=== PATIENT | female | born 1965 | race Caucasian/White ===

== ENCOUNTER 2016-12-22 18:22 | Emergency (ER) | payer BC ==
[2016-12-22 18:47] VITALS: BP 135/69
--- NOTE | 2016-12-22 19:37 | EDM.PDOC ---
ED HPI GENERAL MEDICAL PROBLEM - General Chief Complaint: Eye Problems Stated Complaint: SOMETHING IN RIGHT EYE Time Seen by Provider: 12/22/16 18:45 Source of Information: Reports: Patient History Limitations: Reports: No Limitations - History of Present Illness INITIAL COMMENTS - FREE TEXT/NARRATIVE: Patient is a 51-year-old female who presents to the ED complaining of something in her right eye. Patient was mowing earlier today when this occurred. States her right eye has been excessively watery. She has no vision changes. Minimal pain present. Patient does wear glasses. 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 (see below) Other Treatments MARINE SERVICE OPERATOR: eye drops Right Eye Pain Score (Numeric/FACES): 4 - Related Data Allergies Allergy/AdvReac Type Severity Reaction Status Date / Time procaine [From Novocain] Allergy Swelling Verified 12/22/16 18:36 shellfish derived Allergy Rash Verified 12/20/15 13:24 Home Meds: Home Meds Hydrochlorothiazide [Hydrochlorothiazide] 12.5 mg PO DAILY 12/22/16 [History] Social & Family History - Tobacco Use Smoking Status *Q: Never Smoker Second Hand Smoke Exposure: No - Caffeine Use Caffeine Use: Reports: Soda - Recreational Drug Use Recreational Drug Use: No ED ROS GENERAL - Review of Systems Review Of Systems: See Below HEENT: Reports: Eye Pain (Right). Denies: Vision Change ED EXAM GENERAL W FULL EYE - Physical Exam Exam: See Below Exam Limited By: No Limitations General Appearance: Alert, WD/WN, No Apparent Distress Eye Exam: Right Eye: Corneal Abrasion, EOMI, PERRL Visual Acuity (R) 20/: 40 Visual Acuity (L) 20/: 20 With Correction: Yes Eyelids: Right: Normal Appearance, Infraorbital Anesthesia, Lid Everted for Exam Conjunctiva & Sclera: Right: Injected Cornea Exam: Right: Corneal Abrasion, Examined with Flourescein Extraocular Movements: Right: Intact Pupillary Size: Bilateral: 4 mm Pupillary Reaction: Bilateral: Brisk Anterior Chamber: Bilateral: Normal Appearance Ears: Hearing Grossly Normal Nose: Normal Inspection Throat/Mouth: Normal Voice, No Airway Compromise Neck: Normal Inspection, Supple Respiratory/Chest: No Respiratory Distress, No Accessory Muscle Use Cardiovascular: Normal Peripheral Pulses Neurological: Alert, Oriented, CN II-XII Intact, Normal Cognition Psychiatric: Normal Affect, Normal Mood Skin Exam: Warm, Dry, Intact, Normal Color Course - Vital Signs Last Recorded V/S: Last Vital Signs Temp 98.3 F 12/22/16 18:38 Pulse 72 12/22/16 18:38 Resp 18 12/22/16 18:38 BP 135/69 12/22/16 18:38 Pulse Ox 97 12/22/16 18:38 - Orders/Labs/Meds Meds: Medications Discontinued Medications Generic Name Dose Route Start Last Admin Trade Name Dennis GUTIERREZ Reason Stop Dose Admin Erythromycin 1 gm 12/22/16 21:02 12/22/16 21:19 Erythromycin 0.5% Ophth Oint EYERT 12/22/16 21:03 1 cm ONETIME ONE Administration Fluorescein Sodium/Benoxinate HCl 1 ml 12/22/16 20:23 12/22/16 20:58 Fluress Ophth Soln EYERT 12/22/16 20:24 1 ml ONETIME ONE Administration Ketorolac Tromethamine 60 mg 12/22/16 20:58 12/22/16 21:03 Toradol IM 12/22/16 20:59 60 mg ONETIME ONE Administration Proparacaine HCl 1 ml 12/22/16 20:23 12/22/16 20:58 Proparacaine 0.5% Ophth Soln EYERT 12/22/16 20:24 1 ml ONETIME ONE Administration - Re-Assessments/Exams Free Text/Narrative Re-Assessment/Exam: Patient has a allergy to procaine and thus with ordering proparacaine and fluress it pops up as a allergy. I did contact pharmacy at 1850 to see if this is of any concern. 1932 Pharmacy called back and recommends contacting turntable worker to discuss this with since all literature recommends not utilizing any of the two. 1935 [facility] contacted. They will call back when Opthalmologist observation assistant calls back. [id number] Batista and she does not see any issues with utilizing the proparacaine and fluress. States it is a common issue to which should be of no concern. 12/22/16 20:59 Under slit light examination with proparacaine and fluress patient did have a corneal abrasion to the 3:00 aspect of the right cornea. No foreign objects noted. No additional abrasions. Will order erythromycin ribbon be applied to the affected eye. Patient has a headache is requesting something for the discomfort. Ordered Toradol 60 mg IM. Discharged home with instructions as documented. Departure - Departure Time of Disposition: 21:03 Disposition: Home, Self-Care 01 Condition: Good Clinical Impression: Corneal abrasion, right Qualifiers: Encounter type: initial encounter Qualified Code(s): S05.01XA - Injury of conjunctiva and corneal abrasion without foreign body, right eye, initial encounter - Discharge Information Instructions: Corneal Abrasion, [id number] Referrals: PCP,None [Primary Care Provider] - Forms: ED Department Discharge Additional Instructions: Apply 1 cm of erythromycin ointment to the right eye 4 times a day. See your bread racker this coming Sunday for reevaluation. Take ibuprofen and Tylenol in alternating fashion for pain. Return to the ED for any new or worsening symptoms.
[2016-12-22] MEDS ORDERED: Benoxinate/Fluorescein 0.4-0.25% Ophth Soln 5 ML Bottle EYERT ONE (20:23)
[2016-12-22] MEDS ORDERED: Proparacaine 0.5% Ophth Soln 15 ML Bottle EYERT ONE (20:23)
[2016-12-22] MEDS ORDERED: Ketorolac 60 MG/2 ML SDV IM ONE (20:58)
[2016-12-22] MEDS ORDERED: Erythromycin Base 0.5% Ophth Oint 1 GM Tube EYERT ONE (21:02)
== END 2016-12-22 21:22 | disposition home or self-care (01) ==
LOC: JD.ED 18:22
DX: S05.01XA Injury of conjunctiva and corneal abrasion without foreign body, right eye, initial encounter (principal); Z88.8 Allergy status to other drugs, medicaments and biological substances; Z91.013 Allergy to seafood; Z79.899 Other long term (current) drug therapy; X58.XXXA Exposure to other specified factors, initial encounter
CPT/HCPCS: 96372; 99283; A9270; J1885

== ENCOUNTER 2020-09-24 19:39 | Emergency (ER) | payer BC ==
[2020-09-24] MEDS ORDERED: Pantoprazole 40 MG in Sodium Chloride 0.9% 100 ML IV ONE (20:18)
[2020-09-24] MEDS ORDERED: Ondansetron 4 MG/2 ML SDV IVPUSH ONE (20:18)
[2020-09-24] MEDS ORDERED: HYDROmorphone 0.5 MG/0.5 ML Syringe IVPUSH ONE ×2 (20:19→21:49)
[2020-09-24] MEDS ORDERED: Pantoprazole 40 MG Vial IVPUSH ONE (20:24)
--- NOTE | 2020-09-24 20:25 | EDM.PDOC ---
ED HPI GENERAL MEDICAL PROBLEM - General Chief Complaint: Abdominal Pain Stated Complaint: ABDOMINAL PAIN NAUSEA Time Seen by Provider: 09/24/20 20:08 Source of Information: Reports: Patient History Limitations: Reports: No Limitations - History of Present Illness INITIAL COMMENTS - FREE TEXT/NARRATIVE: This is a 55-year-old female. Onset yesterday evening with right upper quadrant pain radiating to the right back area. She says the last time this happened she was diagnosed with celiac disease. She has been faithful with her diet and has not strayed from it recently to cause this pain again. She had her gallbladder removed many years ago and when she had this pain that long time ago they thought maybe she had a retained stone but they did not find anything. She does complain of some nausea and headache. She was supposed to go to [place] some years ago to get the sphincter of Oddi checked but due to circumstances she never went. She also says she has a history of ulcers bleeding some years ago nothing recent and she has been having normal bowel movements that are not black sticky or red. She has not been vomiting. Due to the right upper quadrant abdominal pain she comes to the ER. She has no history of pancreatitis or liver disease. Right Upper Abdomen Pain Score (Numeric/FACES): 9 - Related Data Allergies Allergy/AdvReac Type Severity Reaction Status Date / Time aspirin Allergy Shortness Verified 09/24/20 19:59 of Breath procaine [From Novocain] Allergy Swelling Verified 09/24/20 19:59 shellfish derived Allergy Rash Verified 09/24/20 19:59 Home Meds: Home Meds hydroCHLOROthiazide [Hydrochlorothiazide] 12.5 mg PO DAILY 12/22/16 [History] Pantoprazole Sodium [Protonix] 40 mg PO QAM #30 tablet. 09/24/20 [Rx] metFORMIN [Glucophage] 500 mg PO DAILY 09/24/20 [History] Past Medical History HEENT History: Reports: Impaired Vision Cardiovascular History: Reports: Hypertension Gastrointestinal History: Reports: Celiac Disease, Other (See Below) Other Gastrointestinal History: bleeding ulcers Endocrine/Metabolic History: Reports: Diabetes, Type II Hematologic History: Reports: Anemia - Past Surgical History HEENT Surgical History: Reports: Naso-Sinus Surgery, Tonsillectomy GI Surgical History: Reports: Cholecystectomy Social & Family History - Family History Family Medical History: No Pertinent Family History - Tobacco Use Tobacco Use Status *Q: Former Tobacco User Used Tobacco, but Quit: Yes Month/Year Tobacco Last Used: 1999 - Caffeine Use Caffeine Use: Reports: Coffee, Tea - Recreational Drug Use Recreational Drug Use: No ED ROS GENERAL - Review of Systems Review Of Systems: See Below Constitutional: Denies: Fever, Chills HEENT: Reports: No Symptoms Respiratory: Denies: Shortness of Breath, Cough Cardiovascular: Reports: No Symptoms Endocrine: Reports: No Symptoms GI/Abdominal: Reports: Abdominal Pain, Nausea. Denies: Constipation, Diarrhea, Vomiting : Reports: No Symptoms Skin: Reports: No Symptoms Neurological: Reports: Headache Psychiatric: Reports: No Symptoms Hematologic/Lymphatic: Reports: No Symptoms ED EXAM, GI/ABD - Physical Exam Exam: See Below Exam Limited By: No Limitations General Appearance: Alert, WD/WN, Mild Distress Eyes: Bilateral: Normal Appearance Ears: Normal External Exam Nose: Normal Inspection Throat/Mouth: Normal Lips, Normal Voice, No Airway Compromise Head: Normocephalic Neck: Supple Respiratory/Chest: No Respiratory Distress, Lungs Clear, Normal Breath Sounds Cardiovascular: Regular Rate, Rhythm, No Murmur GI/Abdominal Exam: Soft, No Distention, No Mass, Other (She is tender in the right upper quadrant but no rebound or peritoneal signs. Bowel sounds are positive but decreased.) Back Exam: Normal Inspection, Full Range of Motion Extremities: Normal Inspection, Normal Range of Motion Neurological: Alert, Oriented Psychiatric: Normal Affect, Normal Mood Skin Exam: Warm, Dry Course - Vital Signs Last Recorded V/S: Last Vital Signs Temp 97.8 F 09/24/20 19:57 Pulse 82 09/24/20 19:57 Resp 17 09/24/20 19:57 BP 154/73 H 09/24/20 19:57 Pulse Ox 99 09/24/20 19:57 - Orders/Labs/Meds Orders: Active Orders 24 hr Category Date Time Status Abdomen Ltd [US] Stat Exams 09/24/20 20:23 Taken Sodium Chloride 0.9% [Normal Saline] 1,000 ml Med 09/24/20 20:30 Active IV ASDIRECTED Medication Orders Sodium Chloride (Normal Saline) 1,000 mls @ 1,000 mls/hr IV ASDIRECTED AGUEDA Last Admin: 09/24/20 20:45 Dose: 1,000 mls/hr Documented by: GITA Labs: Laboratory Tests 09/24/20 09/24/20 Range/Units 20:40 20:40 WBC 11.18 H (3.98-10.04) K/mm3 RBC 4.22 (3.98-5.22) M/mm3 Hgb 13.6 (11.2-15.7) gm/dl Hct 40.1 (34.1-44.9) % MCV 95.0 H (79.4-94.8) fl MCH 32.2 (25.6-32.2) pg MCHC 33.9 (32.2-35.5) g/dl RDW Std Deviation 43.0 (36.4-46.3) fL Plt Count 276 (182-369) K/mm3 MPV 10.6 (9.4-12.3) fl Neut % (Auto) 54.2 (34.0-71.1) % Lymph % (Auto) 32.6 (19.3-51.7) % [place] % (Auto) 9.4 (4.7-12.5) % Eos % (Auto) 3.3 (0.7-5.8) Baso % (Auto) 0.3 (0.1-1.2) % Neut # (Auto) 6.06 (1.56-6.13) K/mm3 Lymph # (Auto) 3.65 (1.18-3.74) K/mm3 [place] # (Auto) 1.05 H (0.24-0.36) K/mm3 Eos # (Auto) 0.37 H (0.04-0.36) K/mm3 Baso # (Auto) 0.03 (0.01-0.08) K/mm3 Manual Slide Review Normal smear Sodium 143 (136-145) mEq/L Potassium 3.7 (3.5-5.1) mEq/L Chloride 101 (98-107) mEq/L Carbon Dioxide 32 (21-32) mEq/L Anion Gap 13.7 (5-15) BUN 25 H (7-18) mg/dL Creatinine 0.9 (0.55-1.02) mg/dL Est Cr Clr Drug Dosing 64.30 mL/min Estimated GFR (MDRD) > 60 (>60) mL/min BUN/Creatinine Ratio 27.8 H (14-18) Glucose 111 H (74-106) mg/dL Calcium 9.7 (8.5-10.1) mg/dL Total Bilirubin 0.4 (0.2-1.0) mg/dL AST 25 (15-37) U/L ALT 32 (14-59) U/L Alkaline Phosphatase 43 L (46-116) U/L C-Reactive Protein 0.5 (<1.0) mg/dL Total Protein 8.5 H (6.4-8.2) g/dl Albumin 4.3 (3.4-5.0) g/dl Globulin 4.2 gm/dL Albumin/Globulin Ratio 1.0 (1-2) Amylase 55 (25-115) U/L Lipase 174 (73-393) U/L Meds: Medications Generic Name Dose Route Start Last Admin Trade Name Freq PRN Reason Stop Dose Admin Sodium Chloride 1,000 mls @ 1,000 mls/hr 09/24/20 20:30 09/24/20 20:45 Normal Saline IV 1,000 mls/hr ASDIRECTED AGUEDA Administration Discontinued Medications Generic Name Dose Route Start Last Admin Trade Name Freq PRN Reason Stop Dose Admin Hydromorphone HCl 0.5 mg 09/24/20 20:19 09/24/20 20:45 Hydromorphone 0.5 Mg/0.5 Ml Syringe IVPUSH 09/24/20 20:20 0.5 mg ONETIME ONE Administration Hydromorphone HCl 0.5 mg 09/24/20 21:49 09/24/20 21:56 Hydromorphone 0.5 Mg/0.5 Ml Syringe IVPUSH 09/24/20 21:50 0.5 mg ONETIME ONE Administration Pantoprazole Sodium 40 mg/ 100 mls @ 200 mls/hr 09/24/20 20:18 09/24/20 20:58 Sodium Chloride IV 09/24/20 20:47 Not Given ONETIME ONE Ondansetron HCl 4 mg 09/24/20 20:18 09/24/20 20:45 Ondansetron 4 Mg/2 Ml Sdv IVPUSH 09/24/20 20:19 4 mg ONETIME ONE Administration Pantoprazole Sodium 40 mg 09/24/20 20:24 09/24/20 20:46 Pantoprazole 40 Mg Vial IVPUSH 09/24/20 20:25 40 mg ONETIME ONE Administration - Radiology Interpretation Free Text/Narrative:: Ultrasound of the upper quadrant shows a gallbladder that is absent there are no stones the pancreas is normal the liver does show a fatty liver but there is no acute findings. - Re-Assessments/Exams Free Text/Narrative Re-Assessment/Exam: 09/24/20 23:07 Spoke to the patient regarding the blood results which show that there is no significant liver abnormalities or pancreas abnormalities and even though the white count is slightly elevated it does not appear that there is a left shift. The ultrasound just showed a fatty liver but a normal tubes and an absent gallbladder normal pancreas. The medicines have eased up her symptoms so they are bearable. I offered to give her a CT scan with contrast to make sure were not missing something but she would prefer to follow-up with your doctor. I think she might have a duodenal ulcer but obviously I cannot prove it without a scope. I explained this to the patient and we will treat her as if she has an ulcer but she needs to follow-up with her doctor for additional evaluation. The patient states she understands. Departure - Departure Time of Disposition: 23:08 Disposition: Home, Self-Care 01 Condition: Fair Clinical Impression: Right upper quadrant pain, Duodenal ulcer - Discharge Information *PRESCRIPTION DRUG MONITORING PROGRAM REVIEWED*: No *COPY OF PRESCRIPTION DRUG MONITORING REPORT IN PATIENT ANN MARIE: No Prescriptions: Pantoprazole Sodium [Protonix] 40 mg PO QAM #30 tablet. Instructions: Peptic Ulcer, [place], [place] Diet Referrals: Cynthia Burden, DOCUMENTATION BILLING CLERK [Primary Care Provider] - Forms: ED Department Discharge Additional Instructions: You were seen in the emergency room for right upper quadrant abdominal pain, the blood work and the ultrasound did not show any acute findings. You were offered a CT scan with contrast to make certain we are not missing something but you preferred to go home and see your family doctor which she is okay. Your symptoms would suggest a possible ulcer and I am going to treat you as such. Take the Protonix every morning and stay on a bland diet and avoid acidic foods. If your symptoms seem to worsen over the weekend you need to return to the ER for additional work-up, otherwise follow-up with your family doctor this coming week. Sepsis Event Note (ED) - Evaluation Sepsis Screening Result: No Definite Risk - Focused Exam Vital Signs: Vital Signs Temp Pulse Resp BP Pulse Ox 09/24/20 19:57 97.8 F 82 17 154/73 H 99 - My Orders Last 24 Hours: My Active Orders 09/24/20 20:23 Abdomen Ltd [US] Stat 09/24/20 20:30 Sodium Chloride 0.9% [Normal Saline] 1,000 ml IV ASDIRECTED - Assessment/Plan Last 24 Hours: My Active Orders 09/24/20 20:23 Abdomen Ltd [US] Stat 09/24/20 20:30 Sodium Chloride 0.9% [Normal Saline] 1,000 ml IV ASDIRECTED
[2020-09-24] MEDS ORDERED: Sodium Chloride 0.9% 1,000 ML IV SCH (20:30)
[2020-09-24 23:32] VITALS: BP 109/54; PULSE 77
--- NOTE | 2020-09-26 11:29 | US ---
Limited abdominal ultrasound: Multiple real-time images were obtained of the right upper abdomen. Comparison: Prior CT abdomen and pelvis exam of 12/20/15. Findings: Liver is echodense compatible with diffuse fatty infiltration. This is noted on prior CT exam. No definite focal abnormality is appreciated within the liver. Prior cholecystectomy is seen. No biliary duct dilatation is seen. Right kidney shows no hydronephrosis. Right kidney has a length of 11.4 cm. Proximal abdominal aortal measures approximately 2.3 cm in AP dimension which is within normal limits. Head of the pancreas is seen. Other portions of the pancreas are obscured by bowel gas. Inferior vena cava is patent. Main portal vein shows normal hepatopedal flow. Impression: 1. Fatty infiltration within the liver which was noted on prior CT exam. 2. Prior cholecystectomy with no biliary duct dilatation. 3. Nothing acute is otherwise appreciated on right upper quadrant abdominal ultrasound. Diagnostic code #2 I agree with preliminary report from [facility], finalized on 09/24/20, 11:20 PM CDT
--- NOTE | 2020-09-29 10:38 | PCM.SN.2 ---
#1 Interpretation EKG Date: 09/29/20 Time: 08:18 Rhythm: NSR Rate (Beats/Min): 70 Bivalve: Normal P-Wave: Present QRS: Normal ST-T: Normal QT: Normal
== END 2020-09-24 23:27 | disposition home or self-care (01) ==
LOC: JD.ED 19:39
DX: K26.9 Duodenal ulcer, unspecified as acute or chronic, without hemorrhage or perforation (principal); I10 Essential (primary) hypertension; E11.9 Type 2 diabetes mellitus without complications; Z87.891 Personal history of nicotine dependence; Z91.013 Allergy to seafood; Z88.6 Allergy status to analgesic agent; Z88.4 Allergy status to anesthetic agent; Z79.84 Long term (current) use of oral hypoglycemic drugs; Z79.899 Other long term (current) drug therapy
CPT/HCPCS: 36415; 76705; 80053; 82150; 83690; 85025; 86140; 96374; 96375; 96376; 99284; C9113; J1170; J2405; J7030